=== PATIENT | male | born 1985 | race Hispanic/Latino ===

== ENCOUNTER 2025-05-03 20:55 | Emergency (ER) | payer SELFPAY ==
[~2025-05-03] VITALS: Ht 172.7 cm; Wt 90.3 kg
[2025-05-03 21:55] LABS: BASOPHILS # (AUTO) 0.03 K/uL (0.00-0.20); BASOPHILS % (AUTO) 0.3 % (0.0-5.0); EOSINOPHILS # (AUTO) 0.05 K/uL (0.00-0.70); EOSINOPHILS % (AUTO) 0.6 % (0.0-8.0); HEMATOCRIT 50.7 % (42-54); IMMATURE GRANULOCYTE ABSOLUTE 0.04 K/uL (0-1); LYMPHOCYTES # (AUTO) 0.8 K/uL (1.0-4.8); LYMPHOCYTES % (AUTO) 9.2 % (21.0-51.0); MEAN CORPUSCULAR HGB CONC 34.1 g/dL (32.0-36.0); MONOCYTES # (AUTO) 0.8 K/uL (0.1-1.0); MONOCYTES % (AUTO) 8.9 % (3.0-13.0); NEUTROPHILS # (AUTO) 7.1 K/uL (1.8-7.7); NEUTROPHILS % (AUTO) 80.5 % (40.0-77.0); PLATELET COUNT (AUTO) 226 K/uL (130-400); RED BLOOD CELL COUNT(AUTO) 5.76 MIL/uL (4.50-6.20); RED CELL DISTRIBUTION WIDTH 14.3 % (11.0-15.5); WHITE BLOOD COUNT (AUTO) 8.9 K/uL (4.8-10.8)
[2025-05-03 22:04] LABS: POTASSIUM 3.6 mmol/L (3.5-5.1)
[2025-05-03 22:23] LABS: INR 1.12 (0.85-1.15); PROTHROMBIN TIME 11.7 SEC (9.6-11.6)
[2025-05-03] MEDS: LACTATED RINGERS 1000ML 1,000 ML IV ONE (22:38)
--- NOTE | 2025-05-03 22:59 | HMCIMG ---
CHEST 1VW HISTORY: Pain COMPARISON: None FINDINGS: A frontal projection of the chest was obtained. No acute pulmonary infiltrates is seen. The heart is normal in size. Prominent interstitial markings are seen. No evidence of aortic calcification is seen. IMPRESSION: 1. No acute pulmonary infiltrate is seen.
--- NOTE | 2025-05-03 23:18 | NUR ---
LATE VIOLET 2239, ASKED ER DOCTOR LAINEY IF HE REPEAT TROPONIN NEEDED , PER ER DOCTOR NO NEED TO ORDER SECOND TROPONIN
[2025-05-03] MEDS: acetaMINOPHEN 500 MG TABLET PO ONE (23:35)
[2025-05-03] MEDS: ketOROlac 60 MG VIAL (30MG/ML) IM ONE (23:35)
--- NOTE | 2025-05-03 23:44 | ERN ---
General Chief Complaint: Chest Pain Stated Complaint: CHEST PAIN Time Seen by MD: 21:12 History of Present Illness Initial Comments Mr. Woods is a very pleasant 39-year-old male who comes in today with a chief complaint of chest pain. Patient reports that he only has a elevated LDL but reports that he has been having chest pain for the last 2-4 hours. 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 Patient states it is reproducible. Patient denies any other complaints. Patient does not smoke drink or do drugs. Allergies: Coded Allergies: No Known Drug Allergies (Unverified Allergy, Unknown, 05/03/25) Past Medical History Past Medical History: No Pertinent History Past Surgical History: None ROS Dictation Constitutional: Negative for fever,chills, and weight loss Eyes: Negative for injury, pain,redness, and discharge ENT: Negative for injury,pain or swelling Cardiovascular: Positive for chest pain Respiratory: Negative for shortness of breath, cough, and wheezing, Abdomen/GI: Negative for abdominal pain, nausea, vomiting, diarrhea, and constipation Back: Negative for injury and pain : Negative for injury, bleeding and discharge MS/Extremity: Negative for injury and deformity Skin: Negative for rash, and discoloration Neuro: Negative for headache, weakness, numbness, tingling, and seizure Psych: Negative for suicide ideation, homicidal ideation, and hallucinations Physical Exam Physical Exam Dictation General: Anxious male in pain Head/Face: Normocephalic, atraumatic Eyes: PERRL, EOMI, vision at baseline ENT: oral cavity clear, TMs clear, no signs of infection Neck: Trachea midline, supple, no nuchal rigidity Cardiovascular: RRR, normal S1/S2, No MRGs, no JVD Respiratory: CTAB, no respiratory distress, No rales or wheezes Abdomen: Soft, non-tender, non-distended, normal bowel sounds, no guarding or rebound. Skin: Warm, dry, normal turgor, no rash MS/Extremity: Pulses equal, no cyanosis, neurovascular intact, FROM Neuro: COAx4, GCS 15, strength 5/5, CN 2-12 intact, normal cerebellar exam, normal gait, Psych: Normal behavior, mood, and affect normal Results Laboratory and Microbiology Lab and Micro Result Laboratory Tests Test 05/03/25 21:48 05/03/25 23:40 05/04/25 01:20 White Blood Count 8.9 K/uL (4.8-10.8) Red Blood Count 5.76 MIL/uL (4.50-6.20) Hemoglobin 17.3 g/dL (14.0-18.0) Hematocrit 50.7 % (42-54) Mean Corpuscular Volume 88.0 fL (79-99) Mean Corpuscular Hemoglobin 30.0 pg (27.0-33.0) Mean Corpuscular Hemoglobin Concent 34.1 g/dL (32.0-36.0) Red Cell Distribution Width 14.3 % (11.0-15.5) Platelet Count 226 K/uL (130-400) Mean Platelet Volume 9.5 fL (7.5-10.5) Immature Granulocyte % (Auto) 0.5 % (0-1) Neutrophils (%) (Auto) 80.5 % (40.0-77.0) H Lymphocytes (%) (Auto) 9.2 % (21.0-51.0) L Monocytes (%) (Auto) 8.9 % (3.0-13.0) Eosinophils (%) (Auto) 0.6 % (0.0-8.0) Basophils (%) (Auto) 0.3 % (0.0-5.0) Neutrophils # (Auto) 7.1 K/uL (1.8-7.7) Lymphocytes # (Auto) 0.8 K/uL (1.0-4.8) L Monocytes # (Auto) 0.8 K/uL (0.1-1.0) Eosinophils # (Auto) 0.05 K/uL (0.00-0.70) Basophils # (Auto) 0.03 K/uL (0.00-0.20) Absolute Immature Granulocyte (auto 0.04 K/uL (0-1) Nucleated Red Blood Cells 0.0 % (0.0-0.19) White Cell Morphology Comment See comments Prothrombin Time 11.7 SEC (9.6-11.6) H Prothromb Time International Ratio 1.12 (0.85-1.15) Sodium Level 135 mmol/L (136-145) L Potassium Level 3.6 mmol/L (3.5-5.1) Chloride Level 99 mmol/L (101-111) L Carbon Dioxide Level 26 mmol/L (21-32) Blood Urea Nitrogen 15 mg/dL (7-18) Creatinine 1.0 mg/dL (0.5-1.3) Glomerular Filtration Rate Calc 99 mL/min (>90) Random Glucose 115 mg/dL (70-105) H Total Calcium 9.0 mg/dL (8.5-10.1) Total Creatine Kinase 88 U/L (21-232) Troponin I High Sensitivity 4 ng/L (4-75) 6 ng/L (4-75) Triglycerides Level 132 mg/dL (30-200) Cholesterol Level 184 mg/dL (<200) LDL Cholesterol 126 mg/dL (0-99) H HDL Cholesterol 37 mg/dL (29-71) Urine Opiates Screen NEGATIVE (NEGATIVE) Urine Barbiturates Screen NEGATIVE (NEGATIVE) Urine Phencyclidine Screen NEGATIVE (NEGATIVE) Urine Amphetamines Screen NEGATIVE (NEGATIVE) Urine Benzodiazepines Screen NEGATIVE (NEGATIVE) Urine Cocaine Screen NEGATIVE (NEGATIVE) Urine Marijuana (THC) Screen POSITIVE (NEGATIVE) H MDM Patient appears to be chest pain free. Troponins are reassuring. Patient will need to follow up with the primary care physician. Patient is positive for THC. MDM: Differential diagnosis: Noncardiac chest pain Rationale: Tests considered and ordered secondary to shared decision making include: Previous outside records reviewed: Old ER visits. Risk of complication and/or morbidity or mortality of patient management: None Medications-Per medication reconciliation Need for hospitalization: Patient does not meet criteria for hospitalization. Need for emergency major/minor surgery: No There are no social concerns with this patient. Prescription drug management Prescriptions will include symptomatic care Patient's prior external medical records from other ER visits were reviewed by me as indicated. Prior testing and results from previous visits were reviewed. Prior tests were taken into account with medical decision making and resource utilization, independent historian/historians were used to obtain complete medical history. I independently interpreted the test that were performed, results were reviewed by me and considered findings on radiology if ordered. Medical management and examination interpretation discussions were had by me with other qualified healthcare professionals as indicated for the patient's care. ED Course Orders Procedure Category Date Status Time 12 Lead Ekg Tracing- EKG 05/03/25 Logged Technical 21:06 Cbc With Differential LAB 05/03/25 Complete 21:18 Prothrombin Time With LAB 05/03/25 Complete INR 21:18 Lipid Panel LAB 05/03/25 Complete 21:18 Chest 1vw RAD 05/03/25 Resulted 21:18 Lactated Ringers PHA 05/03/25 Complete 1000ml (Lactated 21:30 Creatine Kinase, Total LAB 05/03/25 Complete 21:18 Troponin I High LAB 05/03/25 Complete Sensitivity 21:18 Basic Metabolic Panel LAB 05/03/25 Complete 21:18 Drug Screen Urine LAB 05/03/25 Complete 21:47 Ketorolac 60mg/2ml PHA 05/03/25 Complete (Toradol 60mg/2ml) 23:30 Acetaminophen 500mg PHA 05/03/25 Complete Tab (Tylenol 500mg T 23:30 Morphine 4mg Syg PHA 05/04/25 Complete (Morphine 4mg Syg) 01:00 Troponin I High LAB 05/04/25 Complete Sensitivity 01:08 Current Medications Medications (Trade) Dose Ordered Sig/Ashley Route PRN Reason Start Time Stop Time Status Last Admin Dose Admin Acetaminophen (TYLenol 500MG TAB) 500 mg ONCE ONCE PO 05/03/25 23:30 05/03/25 23:31 DC 05/03/25 23:35 Ketorolac Tromethamine (toRADol 60MG/ 2ML) 30 mg ONCE ONCE IM 05/03/25 23:30 05/03/25 23:31 DC 05/03/25 23:35 Lactated Ringer's 1,000 ml @ 0 mls/hr ONCE ONCE IV 05/03/25 21:30 05/03/25 21:31 DC 05/03/25 22:38 Morphine Sulfate (morPHINE 4MG SYG) 4 mg ONCE ONCE IV 05/04/25 01:00 05/04/25 01:01 DC 05/04/25 00:37 Vital Signs Date Time Temp Pulse Resp B/P (MAP) Pulse Ox O2 Delivery O2 Flow Rate FiO2 05/04/25 00:38 82 16 118/62 98 Room Air* 0 05/03/25 23:41 97.9 75 19 128/75 100 Room Air* 0 21 05/03/25 20:59 99.3 97 19 139/87 97 Room Air 0 DX & DISP Disposition: Discharge Departure Impression: Primary Impression: Non-cardiac chest pain Condition: Stable Additional Instructions: Please follow up with your primary care physician in the next 3-6 days follow up. Please avoid using THC related products. Please take Tylenol/ ibuprofen al ternating fashion for your pain the patient if chest pain worsens please come back to the emergency department Referrals: SELF,REFERRAL (PCP) JAYME RETANA MD May 03, 2025 23:44
[2025-05-04] MEDS: morPHINE 4 MG SYG IV ONE (00:37)
[2025-05-04 00:39] LABS: AMPHET/METH SCREEN,URINE NEGATIVE (NEGATIVE); BARBITURATE SCREEN, URINE NEGATIVE (NEGATIVE); BENZODIAZEPINES SCREEN,URINE NEGATIVE (NEGATIVE); CANNABINOID SCREEN,URINE POSITIVE (NEGATIVE); COCAINE SCREEN,URINE NEGATIVE (NEGATIVE); OPIATE SCREEN,URINE NEGATIVE (NEGATIVE); PHENCYCLIDINE SCREEN,URINE NEGATIVE (NEGATIVE)
[2025-05-04 02:15] VITALS: BP 108/65; PULSE 84; RESP 16; TEMP 98.2; O2SAT 97
--- NOTE | 2025-05-04 06:40 | EKG ---
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
== END 2025-05-04 02:18 | disposition home or self-care (01) ==
LOC: EDH 20:55
DX: R07.89 Other chest pain (principal)
CPT/HCPCS: 99285; 71045; 96361; 80061; 82550; 84484 ×2; 80048; 80305; 85025; 85610; 36415; 96372; 93005; 96374; J1885; J2270